=== PATIENT | male | born 1950 | race Caucasian/White ===

== ENCOUNTER → 2019-07-01 | Outpatient (CLI) | payer MEDICARE, OTHER ==
[2019-06-20 09:04] LABS: ABSOLUTE BASOPHILS 0.1 thou/uL (0.0-0.2); ABSOLUTE EOSINOPHILS 0.1 thou/uL (0.0-0.7); ABSOLUTE LYMPHOCYTES 1.1 thou/uL (0.8-5.3); ABSOLUTE MONOCYTES 0.6 thou/uL (0.0-1.2); ABSOLUTE NEUTROPHILS 3.5 thou/uL (1.6-8.1); BASOPHILS 1.3 %; EOSINOPHILS 1.4 %; HEMATOCRIT 47.6 % (42.0-52.0); HEMOGLOBIN 16.5 gm/dL (14.0-18.0); LYMPHOCYTES 20.9 %; MCH 31.3 pg (26.0-34.0); MCHC 34.7 g/dL (28.0-37.0); MONOCYTES 11.7 %; MPV 7.4 fl. (7.2-11.1); NUCLEATED RBCS 0 /100WBC; PLATELET COUNT* 259 thou/uL (150-400); POLYS 64.7 %; RBC 5.29 mil/uL (4.50-6.00); RDW-CV 13.6 % (10.5-14.5); WBC 5.5 thou/uL (4.0-11.0)
[2019-06-20 09:14] LABS: APTT 28.5 Seconds (25.0-31.3); PROTIME 10.7 Seconds (9.20-11.50)
[2019-06-20 09:24] LABS: ALBUMIN 3.8 g/dL (3.4-5.0); CALCIUM 10.1 mg/dL (8.5-10.1); POTASSIUM 3.9 mmol/L (3.5-5.1); TOTAL BILIRUBIN 0.5 mg/dL (<0.1-1.0); TOTAL PROTEIN 7.4 g/dL (6.4-8.2)
[2019-06-20 11:05] LABS: ESR (SEDRATE) 13 mm/hr (0-20)
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
[2019-06-21 02:06] LABS: GLYCOHEMOGLOBIN (HGB A1C) 5.6 % (4.8-5.6)
[~2019-07-01] VITALS: Ht 182.9 cm; Wt 112.5 kg
[~2019-07-01] MED LIST: ASPIR 8181 MG PO; CHLORTHALIDONE25 MG PO; IBUPROFEN 400400 M2 PO; SIMVASTATIN40 MG PO; SPIRONOLACTONE25 MG PO; TESTOSTERO200 MG/11 IM; TOPROL XL100 MG PO
== END | disposition home or self-care (01) ==
LOC: M.SUR 06:53 → M.TBA 11:10 → M.LAB 11:53 → M.TBA 11:53 → EDSTATUS 13:59 → M.TBA 14:00 → EDSTATUS 16:38
PROVIDERS: Orthopaedic Surgery
DX: M25.512 Pain in left shoulder (principal); Z53.8 Procedure and treatment not carried out for other reasons; Z79.82 Long term (current) use of aspirin; Z79.899 Other long term (current) drug therapy; Z98.890 Other specified postprocedural states

== ENCOUNTER 2019-08-05 05:59 | Inpatient (IN) | payer MEDICARE, OTHER ==
[2019-07-18 08:56] LABS: ABSOLUTE BASOPHILS 0.1 thou/uL (0.0-0.2); ABSOLUTE EOSINOPHILS 0.1 thou/uL (0.0-0.7); ABSOLUTE LYMPHOCYTES 1.3 thou/uL (0.8-5.3); ABSOLUTE MONOCYTES 1.1 thou/uL (0.0-1.2); ABSOLUTE NEUTROPHILS 5.7 thou/uL (1.6-8.1); BASOPHILS 0.7 %; EOSINOPHILS 1.4 %; HEMATOCRIT 46.6 % (42.0-52.0); HEMOGLOBIN 16.3 gm/dL (14.0-18.0); LYMPHOCYTES 16.1 %; MCH 31.5 pg (26.0-34.0); MCHC 35.1 g/dL (28.0-37.0); MCV 89.9 fL (80.0-100.0); MPV 7.5 fl. (7.2-11.1); NUCLEATED RBCS 0 /100WBC; PLATELET COUNT* 258 thou/uL (150-400); POLYS 68.8 %; RBC 5.18 mil/uL (4.50-6.00); RDW-CV 13.6 % (10.5-14.5); WBC 8.3 thou/uL (4.0-11.0)
[2019-07-18 09:00] LABS: APTT 27.9 Seconds (25.0-31.3); PROTIME 10.4 Seconds (9.20-11.50)
[2019-07-18 09:04] LABS: ALBUMIN 3.8 g/dL (3.4-5.0); CALCIUM 9.4 mg/dL (8.5-10.1); CREATININE 1.1 mg/dL (0.6-1.3); POTASSIUM 4.2 mmol/L (3.5-5.1); TOTAL BILIRUBIN 0.5 mg/dL (<0.1-1.0); TOTAL PROTEIN 7.3 g/dL (6.4-8.2)
[2019-07-18 14:00] LABS: ESR (SEDRATE) 5 mm/hr (0-20)
[~2019-08-05] VITALS: Ht 182.9 cm; Wt 112.5 kg
[2019-08-05 07:14] VITALS: BP 133/90
[2019-08-05 16:11] VITALS: BP 132/70
--- NOTE | 2019-08-05 16:45 | NUR ---
PT ARRIVED TO UNIT ABOUT 1245 FROM PACU. VITALS STABLE. DRESSING C/D/I TO LEFT SHOULDER, ICE APPLIED. ON 2LO2 WITH CAPNO. IV PATENT, SL. PT RATES PAIN 5/10, REFUSED PAIN MEDS. DENIED N/V. HAS NOT GOT UP SINCE SURGERY. TOLERATING DIET. TEDs, SCDs AND SLING IN PLACE. CALL LIGHT WITHIN REACH. WILL CONTINUE TO MONITOR.
[2019-08-05 20:14] VITALS: BP 137/75
[2019-08-05 20:15] VITALS: BP 131/72
[2019-08-06] VITALS: BP 126/63
[2019-08-06 04:19] VITALS: BP 145/79
--- NOTE | 2019-08-06 05:19 | NUR ---
PATIENT REQUESTED PAIN MEDS X2 GAVE OXY IR 5MG FOR SHOULDER PAIN. KEPT ELEVATED WITH ICE THROUGH SHIFT. HE WAS ABLE TO USE URINAL. NO REPORTS OF NAUSEA OR WORSENING PAIN. RECEIVED ABX SCHEDULED. WILL CONTINUE TO FOLLOW PLAN OF CARE.
[2019-08-06 08:00] VITALS: BP 132/70
[2019-08-06 10:30] VITALS: BP 132/70
[2019-08-06] MEDS ORDERED: ELIQUIS2.5 MG PO (11:05)
[2019-08-06] MEDS ORDERED: ROXICODONE5 M2 PO (11:06)
[2019-08-06] MEDS ORDERED: TRAMADOL 50 MG50 MG PO (11:08)
--- NOTE | 2019-08-06 12:30 | NUR ---
CM CALLED IN PRESCRIPTION FOR ELIQUIS, WRITTEN, TO PT.S PHARMACY- COPAY WAS $28. SPOKE WITH PT.AND . HE WAS READY FOR DISCHARGE. INFORMED OF COPAY. WAS INDEPENDENT AT HOME PRIOR TO SURGERY. CAN ASSIST NEEDED. HE IS AWARE TO F/U WITH IN 2 WEEKS. WILL THEN SCHEDULE HIM FOR SURGERY. IN THE MEANTIME DO ONLY EXERCISES P.T. GAVE HIM. NWB LUE.NO PUSHING,PULLING OR LIFTING.
--- NOTE | 2019-08-06 12:39 | NUR ---
PT DISCHARGED ABOUT 1230 TO HOME WITH NURSING STAFF AND . IV OUT. PT STABLE UPON DISCHARGE. PAIN CONTROLLED. DENIED N/V. PERSONAL BELONGINGS SENT WITH PT. PT GIVEN PAPER SCRIPTS WITH CARE NOTES. MARIBEL CALLED IN. OP THERAPY SET.
--- NOTE | 2019-08-13 12:40 | OP ---
[address] [address] OPERATIVE REPORT Name: SURJIT KUMARI JR Room: [address]#: [id number] Admission: 08/05/19 Attend Phys: Natalia Smith Discharge: 08/06/19 Date of : 50 Report #: [id number] THIS REPORT FOR: //name// CC: Esvin Moss DATE OF SERVICE: 08/05/2019 Lenny Almonte DO, dictating for Todd Wright DO PREOPERATIVE DIAGNOSIS: Left shoulder severe osteoarthritis. POSTOPERATIVE DIAGNOSIS: Left shoulder severe osteoarthritis. OPERATION PERFORMED: Left total shoulder arthroplasty. SURGEON: Todd Wright DO DYE REEL OPERATOR: Sierra Campbell PA-C, and Lenny Almonte DO ESTIMATED BLOOD LOSS: 250 mL. ANTIBIOTICS: 2 g IV Ancef given within 1 hour of skin incision. ANESTHESIA: General plus preoperative interscalene block. DRAINS: None. SPECIMENS: None. COMPLICATIONS: None. CONDITION: Stable. DISPOSITION: PACU to Med/Surg floor. IMPLANTS: The Biomet comprehensive shoulder system was used with following components: 1. A size 13 x 83 mm mini humeral stem. 2. A hybrid glenoid base plate with a porous titanium glenoid post. The modular humeral head was utilized with a variable offset, which was set near the E-offset. INDICATIONS FOR SURGERY: The patient is a pleasant 68-year-old male who has been followed in the [facility] regarding his longstanding left shoulder [facility] [address] [place] [address] OPERATIVE REPORT Name: SURJIT KUMARI JR Room: [address] IN [facility].#: [id number] Admission: 08/05/19 Attend Phys: Natalia Smith Discharge: 08/06/19 Date of : 50 Report #: [id number] pain. He had failed conservative treatment over the last several years, including activity modifications, physical therapies, multiple steroid injections, and previous arthroscopic procedures. Despite trying all these things, he continued to have severe pain, which is limiting his overall activity and quality of life. He did have x-rays which were consistent with severe degenerative changes with loss of joint space, subchondral sclerosis, and osteophytic lipping. Therefore, we did discuss with him proceeding with a total shoulder arthroplasty. The risks, indications, and treatment alternatives were discussed with the patient in good detail and his informed consent was signed and attached to the chart. DESCRIPTION OF PROCEDURE: The patient was taken to the operating suite and placed on the operating table in supine position where general anesthesia was induced. The patient was then placed in a beach chair position with approximately 30 degrees of inclination. The left shoulder region was then sterilely prepped and draped free in the usual fashion. A time-out was then performed to confirm that our safety checklist has been completed and all the OR personnel was in agreement. A longitudinal incision was marked out over the lateral aspect of the coracoid and carried distally. Sharp dissection was carried out through the skin. Hemostasis was achieved with electrocautery throughout the subcutaneous tissues. The deltopectoral interval was bluntly dissected. The cephalic vein was cauterized. A deltoid retractor was placed after the subdeltoid adhesions were freed bluntly. A Mcgarry retractor was placed to retract the conjoined tendon gently medially. We did palpate for the bicipital groove at this time and identified the long head of the biceps tendon within the groove. A sharp dissection was carried down on the lateral aspect of the bicipital groove and into the rotator interval. Approximately 2 mm cuff of the subscapularis attachment was left intact and the subscapularis was peeled medially off the humeral head. The arm was externally rotated and the humeral head was presented from the wound. Dissection was then carried around the neck of the humerus, making sure to stay subperiosteal. Once appropriate visualization was obtained at the proximal humerus, the intramedullary resection guide was placed and pinned into position. The intramedullary guide was then removed and the cut was made through the capture block. This did appear to be in appropriate depth of cut. The cutting guide was then removed. The humerus was then sequentially broached to a size 13, which gave excellent fit and fill within the proximal humerus. This was set at a 30-degree of retroversion and we made sure this was appropriate retroversion throughout the procedure with relation to the transepicondylar axis with the forearm. The final humeral stem was then inserted while maintaining the appropriate version. This did once again give excellent fit and fill within the proximal humerus. We then proceeded to the glenoid preparation. The glenoid retractors were placed anteriorly and posteriorly. Electrocautery was used to excise the remaining labral remnants. The 3.2-mm guide pin was then placed appropriately in the center of the glenoid and the glenoid cannulated reamer was then placed to ream the glenoid appropriately such that we had a smooth surface. The central post [address] [address] OPERATIVE REPORT Name: SURJIT KUMARI JR Room: [address] [place]#: [id number] Admission: 08/05/19 Attend Phys: Natalia Smith Discharge: 08/06/19 Date of : 50 Report #: [id number] was then prepared with the larger reamer. The patient was noted to have significantly sclerotic bone within the glenoid. The peripheral pegs were then drilled through the guide. The glenoid was copiously irrigated and all of the bony debris was removed. Bone cement was mixed on the back table and it was applied to the peripheral peg holes within the glenoid as well as the undersurface of the polyethylene component of the glenoid. The final glenoid component was then impacted into its appropriate positioning within the glenoid. This was then held into position under pressurization while the cement was allowed to harden completely. At this time, the humeral head trial was then placed. This was placed in the eccentric position, which gave a nice fit on the proximal humerus. The shoulder was then reduced and taken through full range of motion. This was then repeated with multiple-sized variants until ultimately the 42 x 24 mm head was selected. This was placed between the D and E level of offset. This gave appropriate tensioning and stability throughout full range of motion. The shoulder was once again dislocated and the trial humeral head was then removed. The shoulder wound was copiously irrigated. Vancomycin powder was sprinkled throughout. The final modular humeral head component was appropriately positioned on the back table. This was then impacted into position onto the final humeral stem components. The shoulder was once again finally reduced and taken through a full range of motion, found to have excellent stability throughout. A layered closure was then began with a #2 FiberWire, reapproximated and then repairing the subscapularis tendon in the rotator interval. Subcutaneous layer was then reapproximated with 2-0 inverted Monocryl sutures followed by 3-0 running subcuticular Stratafix suture. Skin glue was applied to the incision and allowed to dry, followed by a sterile Mepilex dressing. The patient was then placed within the sling. Sponge and needle counts reported correct per the OR personnel. The patient tolerated the procedure well and was transferred to PACU in stable condition. No apparent complications. ATTESTATION: Dr. Todd Wright was present for all critical aspects of surgery. <ELECTRONICALLY SIGNED> By: Dale Alanis DO 08/13/19 1240 1544 1902Roberyosvany Wright DO /nt
== END 2019-08-06 12:30 | disposition home or self-care (01) | DRG 483 ==
LOC: M.TBA 05:59 → M.ORTHSURG 05:59 → M.PRE 06:14 → M.ORTHSURG 12:37 → M.PRE 15:26 → M.ORTHSURG 08-06 12:30
PROVIDERS: Orthopaedic Surgery; ADMIT Internal Medicine
PROC: 0RRK0JZ Replacement of Left Shoulder Joint with Synthetic Substitute, Open Approach (ICD-10-PCS; principal; 2019-08-05)
DX: M19.012 Primary osteoarthritis, left shoulder (principal); I10 Essential (primary) hypertension; E78.5 Hyperlipidemia, unspecified; Z79.82 Long term (current) use of aspirin; Z79.899 Other long term (current) drug therapy

== ENCOUNTER → 2020-04-21 | Outpatient (CLI) | payer MEDICARE, OTHER ==
[~2020-04-21] MED LIST changes: +ACETAMINOPHEN325 M1 PO; +ELIQUIS2.5 MG PO; +ELIQUIS5 MG PO; +OXYCODONE HCL 55 MG PO; +ROXICODONE5 M2 PO; +TRAMADOL 50 MG50 MG PO
[2020-04-21 09:39] LABS: ABSOLUTE BASOPHILS 0.1 thou/uL (0.0-0.2); ABSOLUTE EOSINOPHILS 0.1 thou/uL (0.0-0.7); ABSOLUTE LYMPHOCYTES 1.2 thou/uL (0.8-5.3); ABSOLUTE MONOCYTES 0.8 thou/uL (0.0-1.2); ABSOLUTE NEUTROPHILS 3.9 thou/uL (1.6-8.1); BASOPHILS 1.3 %; EOSINOPHILS 1.5 %; HEMATOCRIT 42.7 % (42.0-52.0); HEMOGLOBIN 14.8 gm/dL (14.0-18.0); LYMPHOCYTES 19.8 %; MCH 32.2 pg (26.0-34.0); MCHC 34.6 g/dL (28.0-37.0); MONOCYTES 12.5 %; MPV 7.1 fl. (7.2-11.1); NUCLEATED RBCS 0 /100WBC; PLATELET COUNT* 238 thou/uL (150-400); POLYS 64.9 %; RBC 4.59 mil/uL (4.50-6.00); RDW-CV 13.7 % (10.5-14.5); WBC 6.1 thou/uL (4.0-11.0)
[2020-04-21 09:49] LABS: APTT 28.4 Seconds (25.0-31.3); PROTIME 10.7 Seconds (9.20-11.50)
[2020-04-21 10:00] LABS: ALBUMIN 3.9 g/dL (3.4-5.0); CALCIUM 9.1 mg/dL (8.5-10.1); CREATININE 1.1 mg/dL (0.6-1.3); PLATELET ESTIMATE ADEQUATE; POTASSIUM 4.4 mmol/L (3.5-5.1); TOTAL BILIRUBIN 0.7 mg/dL (<0.1-1.0); TOTAL PROTEIN 7.4 g/dL (6.4-8.2)
[2020-04-21 11:31] LABS: ESR (SEDRATE) 7 mm/hr (0-20)
--- NOTE | 2020-04-21 17:16 | EKG ---
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1950 Requested By: Todd Wright Order Number: [id number] Alonzo MD: Sergo Dotson Measurements Intervals [place] Rate: 43 P: 19 ND: 199 QRS: 23 QRSD: 118 T: 30 QT: 477 QTc: 404 Interpretive Statements Sinus bradycardia Nonspecific intraventricular conduction delay Low voltage, extremity leads Compared to ECG 06/20/2019 09:08:51 Intraventricular conduction delay persists Electronically Signed On 04-21-2020 17:16:06 CDT by Sergo Dotson [email or web address] <ELECTRONICALLY SIGNED> By: Sergo Dotson MD, [facility] 04/21/20 1716 1014 1014 Sergo Dotson MD, [facility] /EPI
[2020-04-22 02:06] LABS: GLYCOHEMOGLOBIN (HGB A1C) 5.6 % (4.8-5.6)
== END ==
LOC: M.LAB 09:20
PROVIDERS: ATTEND Orthopaedic Surgery
DX: Z01.818 Encounter for other preprocedural examination (principal); M75.02 Adhesive capsulitis of left shoulder; Z20.828 Contact with and (suspected) exposure to other viral communicable diseases; E11.9 Type 2 diabetes mellitus without complications; Z79.01 Long term (current) use of anticoagulants